=== PATIENT | male | born 1980 | race Caucasian/White ===

== ENCOUNTER → 2020-08-17 | Outpatient (CLI) | payer OTHER ==
--- NOTE | 2020-08-17 10:50 | RAD ---
Examination: CT HEAD/BRAIN WO History: OPEN HEAD injury, pain Comparison/Correlation: None Findings: Axial images of the head were obtained without contrast. Coronal reformatted images were pr ovided. Ventricles are normal size. No intracranial hemorrhage, midline shift or mass effect. No depr essed fracture. Orbits are unremarkable. Patchy opacification of ethmoid air cells anteriorly noted. Mucosal thickening of the right frontal sinus is evident. Impression: No intracranial hemorrhage. PQRS Compliance Statement: One or more of the following individualized dose reduction techniques were utilized for this examinat ion: 1. Automated exposure control 2. Adjustment of the mA and/or kV according to patient size 3. Use of iterative reconstruction technique Electronically signed by: Kyler Garcia MD (08/17/2020 10:47 AM) [id number]
== END ==
LOC: CT 10:05
PROVIDERS: ATTEND Preventive Medicine Occupational Medicine
DX: S01.01XA Laceration without foreign body of scalp, initial encounter (principal); X58.XXXA Exposure to other specified factors, initial encounter; Y93.89 Activity, other specified; Y92.89 Other specified places as the place of occurrence of the external cause; Y99.8 Other external cause status
CPT/HCPCS: 70450